=== PATIENT | female | born 1990 | race Two or more races ===

== ENCOUNTER 2017-03-17 12:30 | Emergency (ER) | payer OTHER ==
[2017-03-17 12:49] VITALS: BP 120/84; PULSE 75; TEMP 98.1; BMI 19.8
--- NOTE | 2017-03-17 12:51 | PDOC ---
History of Present Illness - General Chief Complaint: Shortness of Breath Stated Complaint: SHORT OF BREATH Time Seen by Provider: 03/17/17 12:35 History Source: Patient Exam Limitations: No Limitations - History of Present Illness Initial Comments: 03/17/17 12:49 26 y/o female presents with right sided chest pain and SOB since last night. Denies fall, trauma or recent cold. No leg pain. Is currently on BCP, but does not smoke and no long distance traveling. Feeling a little better, has had this in the past. No hx of asthma. Hurts with deep inspiration. Severity: reports: mild Past History - Past Medical History Allergies/Adverse Reactions: Allergies Allergy/AdvReac Type Severity Reaction Status Date / Time No Known Allergies Allergy Verified 03/17/17 12:43 Home Medications: Ambulatory Orders NK [No Known Home Medication] 03/17/17 Review of Systems - Review of Systems Able to Perform ROS?: Yes Is the patient limited [place] proficient: No Constitutional: No: Chills, Fever Respiratory: Yes: Shortness of Breath. No: Cough Cardiac (ROS): Yes: Chest Pain Musculoskeletal: No: Back Pain Integumentary: No: Bruising All Other Systems: Reviewed and Negative *Physical Exam - Physical Exam General Appearance: Yes: Nourished, Appropriately Dressed. No: Apparent Distress HEENT: positive: ALEC, Normal ENT Inspection, Normal Voice Neck: positive: Trachea midline, Normal Thyroid, Supple. negative: Tender, Rigid Respiratory/Chest: positive: Lungs Clear, Normal Breath Sounds. negative: Chest Tender, Respiratory Distress Cardiovascular: positive: Regular Rhythm, Regular Rate, S1, S2. negative: Edema , JVD, Murmur Vascular Pulses: Femoral (R): 4+, Femoral (L): 4+, Carotid (R): 4+, Carotid (L) : 4+, Dorsalis-Pedis (R): 4+, Doralis-Pedis (L): 4+ Gastrointestinal/Abdominal: positive: Normal Bowel Sounds, Flat, Soft. negative : Tender, Organomegaly, Pulsatile Mass Lymphatic: negative: Adenopathy, Tenderness, Other Musculoskeletal: positive: Normal Inspection. negative: CVA Tenderness Extremity: positive: Normal Capillary Refill, Normal Inspection, Normal Range of Motion. negative: Tender, Calf Tenderness Integumentary: positive: Normal Color, Dry, Warm. 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 Pt is feeling better, will discharge home Follow up with PMD, CT in 6 months Motrin, rest If worsen return to ER *DC/Admit/Observation/Transfer Diagnosis at time of Disposition: Pleuritic chest pain - Discharge Dispostion Disposition: HOME Condition at time of disposition: Good Admit: No - Patient Instructions Printed Discharge Instructions: DI for Pleurisy Additional Instructions: Motrin, rest Follow up CT chest in 6 months if no better Follow up with PMD
[2017-03-17 13:35] LABS: BASOPHIL 0.8 % (0-2.0); EOSINOPHIL 2.9 % (0-4.5); MCH 30.2 pg (25.7-33.7); MCHC 33.8 g/dl (32.0-36.0); MEAN CELL VOLUME 89.4 fl (80-96); MEAN PLT VOLUME 8.6 fl (7.5-11.1); NEUTROPHILS 54.5 % (42.8-82.8); PLATELET COUNT 231 K/MM3 (134-434); RDW 12.8 % (11.6-15.6); WHITE BLOOD COUNT 7.3 K/mm3 (4.0-10.8)
[2017-03-17 13:40] LABS: ALBUMIN 4.1 g/dl (3.5-5.0); ALK PHOS 47 U/L (32-92); ANION GAP 5 (8-16); BILIRUBIN,TOTAL 0.6 mg/dl (0.2-1.0); CALCIUM 9.1 mg/dl (8.4-10.2); CO2 27 mmol/L (22-28); CREATININE 0.8 mg/dl (0.6-1.3); GLUCOSE,RANDOM 76 mg/dl (74-106); SGOT/AST 18 U/L (10-42); SGPT/ALT 9 U/L (10-40); TOT PROT 6.5 g/dl (6.4-8.3)
--- NOTE | 2017-03-18 20:01 | EKG ---
Test Reason : Blood Pressure : / mmHG Vent. Rate : 063 BPM Atrial Rate : 063 BPM P-R Int : 116 ms QRS Dur : 090 ms QT Int : 408 ms P-R-T Axes : 059 077 033 degrees QTc Int : 417 ms NORMAL SINUS RHYTHM NORMAL ECG NO PREVIOUS ECGS AVAILABLE Confirmed by LINDA SHAW MD ([id number] on 03/18/2017 8:01:31 PM Referred By: MARCI Confirmed By:LINDA SHAW MD
== END 2017-03-17 15:20 | disposition home or self-care (01) ==
LOC: FER 12:30
DX: R07.89 Other chest pain (principal)
CPT/HCPCS: 36415; 71275-TC; 80053; 84484; 84703; 85025; 93005; 99283-25